=== PATIENT | male | born 1955 | race Caucasian/White ===

== ENCOUNTER 2018-05-08 18:01 | Observation (INO) ==
[2018-05-08] MEDS ORDERED: Nitroglycerin 0.4 MG TAB.SUBL SL ONE (18:05)
[2018-05-08] MEDS ORDERED: 0.9 % Sodium Chloride 500 ML IVC ONE (18:05)
--- NOTE | 2018-05-08 18:08 | Emergency Department Note ---
Disposition Clinical Impression: Chest pain Disposition: Admitted As Inpatient Condition: Fair Referrals: June Page, PHILIPP [Primary Care Provider] - Time of Disposition: 19:19 Chest Pain HPI - General Stated Complaint: CP Time Seen by Provider: 05/08/18 18:05 Source: patient Mode of arrival: wheelchair Limitations: no limitations Vital Signs Reviewed: Yes Nursing Notes Reviewed: Yes - History of Present Illness HPI Narrative: Patient presents to the ED if the chief complaint of chest pain. No previous history of coronary artery disease. States the pain started about 48 hours ago and is gradually worsening. It is intermittent. Has a heavy pressure in his left chest that radiates to his left arm. States that it hurts to move his arm but that is also worse with exertion. No fever or chills. No other chest pain. States that the pain does make him short of breath but no shortness of breath at baseline. No abdominal pain. No nausea, vomiting or diarrhea. States that he has not injured his arm. Does not smoke. - Related Data Home Medications Medication Instructions Recorded Confirmed Lisinopril-HCTZ 10-12.5 [Prinzide 1 tab PO QAM 06/10/15 03/11/18 10-12.5] Ibuprofen [Motrin] 800 mg PO Q8HR 01/24/16 03/11/18 traMADol [Ultram] 50 mg PO TID 01/24/16 03/11/18 Previous Rx's Medication Instructions Recorded Amoxicillin 875 mg PO BID #20 tablet 03/11/18 Allergies Allergy/AdvReac Type Severity Reaction Status Date / Time No Known Allergies Allergy Verified 03/11/18 09:52 Review of Systems: As reviewed in the HPI. All other systems reviewed are negative or normal. Chest Pain PMH - Past Medical History Medical history: Reports: hyperlipidemia, hypertension Surgical history: Reports: orthopedic, other (Back surgery) Psychiatric history: Reports: no psych history - Social History Smoking Status: Never smoker Alcohol use: Reports: none Drug use: Reports: none Physical Exam CONSTITUTIONAL: [Obese, ill appearing, alert and in no acute distress] EYES: [EOMI, clear conjunctiva, PERRLA] HENT: [Normocephalic, atraumatic, moist mucus membranes, normal oropharynx] NECK: [normal inspection, full ROM, trachea midline, no obvious swelling] PULMONARY: [normal lung sounds bilaterally, normal chest rise and fall, no respiratory distress or stridor, no wheezes, no rales, no rhonchi CARDIOVASCULAR: [regular rate, regular rhythm, normal heart sounds, no murmurs, distal extremities are warm and well perfused, the left chest wall is tender to palpation but is not reproducible of his pain] GASTROINSTESTINAL: [soft, non-tender, non-rigid, non-distended, no guarding, no rebound, normal bowel sounds] GENITOURINARY/RECTAL: [deferred] NEUROLOGIC: [Alert, oriented x3, normal speech, moves all extremities] EXTREMITIES: [Normal inspection, full ROM, no tenderness, no pedal edema, normal capillary refill] MUSCULOSKELETAL: [no gross deformities, atraumatic] SKIN: [No cyanosis, no diaphoresis, normal color, warm, no rash] PSYCHIATRIC: [normal mood and affect] Course - Reevaluation(s) Reevaluation #1: Patient's heart score is 4. Initial workup looks okay. Admitted to the hospit alist service. Vital Signs Temperature 99.5 F 05/08/18 18:07 Pulse Rate 84 05/08/18 18:07 Respiratory Rate 23 05/08/18 18:07 Blood Pressure 163/85 05/08/18 18:07 O2 Sat by Pulse Oximetry 98 05/08/18 18:07 Temperature 99.5 F 05/08/18 18:07 Pulse Rate 82 05/08/18 19:07 Respiratory Rate 16 05/08/18 19:07 Blood Pressure 152/72 05/08/18 19:07 O2 Sat by Pulse Oximetry 100 05/08/18 19:07 Oxygen Delivery Oxygen Delivery Room Air Chest Pain - Medical Records Medical records reviewed: Yes I reviewed the patient's medical records. - Lab Data Lab results reviewed: Yes I reviewed the patient's lab results. Result diagrams: 05/08/18 18:20 05/08/18 18:20 Lab Results 05/08/18 05/08/18 Range/Units 18:20 18:20 WBC 8.1 (4.3-11.1) K/mcL RBC 4.93 (4.19-5.50) M/mcL Hgb 16.4 (12.9-16.9) g/dL Hct 47.4 (37.5-50.1) % MCV 96.1 (83.0-100.0) fL MCH 33.3 (28.0-33.3) pg MCHC 34.6 (31.6-35.5) g/dL RDW 11.8 (11.5-14.5) % Plt Count 175 (140-400) K/mcL MPV 9.8 (9.4-12.4) fL Immature Gran % 0.2 (0-4) % Seg Neutrophils % 83.6 % Lymphocytes % 11.0 % Monocytes % 4.4 % Eosinophils % 0.4 % Basophils % 0.4 % Neutrophils # 6.8 (1.6-8.9) K/mcL Lymphocytes # 0.9 (0.6-4.6) K/mcL Monocytes # 0.4 (0.0-1.3) K/mcL Eosinophils # 0.0 (0.0-0.6) K/mcL Basophils # 0.0 (0.0-0.2) K/mcL Sodium 137 (136-145) mEq/L Potassium 3.9 (3.5-5.1) mEq/L Chloride 101 (98-107) mEq/L Carbon Dioxide 27 (23-29) mEq/L BUN 16 (8-23) mg/dL Creatinine 0.88 (0.70-1.30) mg/dL Est GFR ( Amer) > 60 (> 60) Est GFR (Non-Af Amer) > 60 (> 60) BUN/Creatinine Ratio 18 (6-26) Glucose 115 H (70-105) mg/dL Calculated Osmolality 286 (280-300) Calcium 9.2 (8.6-10.3) mg/dL Troponin I < 0.03 (< 0.04) ng/mL - Radiology Data Radiology results reviewed: Yes I reviewed the patient's radiology results. - EKG Data EKG attestation: Yes I reviewed and interpreted this EKG. EKG results narrative: Sinus rhythm, rate 84, left axis deviation, no acute ischemic change Heart Score - Score History: Moderately Suspicious EKG: Normal Age: Greater than 65 Risk Factors: 1-2 risk factors Troponin: Less than normal limit HEART Score Total: 4 Attestation Statement - Attestation Attestation: Patient was seen with resident physician. I reviewed the history, physical, assessment and plan, and agree with the findings. I also personally evaluated this patient and had [id number] time with this patient. 63-year-old male presents emergency Department with worsening chest pain for last 48 hours. Patient states pain started sometime yesterday was intermittent. However today became constant. Sharp's midsternal and left side of the chest. Radiates to the arm. It is worse with movement of the arm and little bit of palpation of the left breast. Does not reproduce the pain exactly. Patient does not have a cardiac history that he is aware of. He continues with pain at the time of initial evaluation. Review systems as above remainder negative. Physical exam vital signs stable ENT unremarkable. Heart regular rhythm and rate. Lungs clear. Abdomen soft obese and nontender. Extremities no significant findings. Neurologically intact with skin no rashes. Psych normal. ED course EKG shows no acute ischemic changes. We will do a complete cardiac workup and admit the patient for further evaluation treatment. With the patient's age and obesity and other risk factors we cannot exclude coronary issues and relatively brief ER visit. Initial workup in the emergency department did not reveal any acute abnormalities. The hospitalist service was notified as to the need for admission. They agreed to accept the patient. Agree with resident physician assessment and plan.
[2018-05-08 18:34] LABS: Basophils % 0.4 %; Eosinophils % 0.4 %; Hematocrit 47.4 % (37.5-50.1); Hemoglobin 16.4 g/dL (12.9-16.9); Immature Granulocytes % 0.2 % (0-4); Lymphocytes # 0.9 K/mcL (0.6-4.6); Mean Corpuscular HGB Conc 34.6 g/dL (31.6-35.5); Mean Corpuscular Hemoglobin 33.3 pg (28.0-33.3); Mean Corpuscular Volume 96.1 fL (83.0-100.0); Mean Platelet Volume 9.8 fL (9.4-12.4); Monocytes # 0.4 K/mcL (0.0-1.3); Monocytes % 4.4 %; Neutrophils # 6.8 K/mcL (1.6-8.9); Platelet Count 175 K/mcL (140-400); Red Blood Count 4.93 M/mcL (4.19-5.50); Red Cell Distribution Width 11.8 % (11.5-14.5); Segmented Neutrophils % 83.6 %
[2018-05-08 18:59] LABS: BUN/Creatinine Ratio 18 (6-26); Blood Urea Nitrogen 16 mg/dL (8-23); Calcium 9.2 mg/dL (8.6-10.3); Carbon Dioxide 27 mEq/L (23-29); Chloride 101 mEq/L (98-107); Glucose 115 mg/dL (70-105); Osmolality,Calculated 286 (280-300); Potassium 3.9 mEq/L (3.5-5.1); Sodium 137 mEq/L (136-145); eGFR For Non-African Americans > 60 (> 60)
[2018-05-08 19:00] LABS: Troponin I < 0.03 ng/mL (< 0.04)
[2018-05-08] MEDS ORDERED: Naloxone 0.4 MG/ML INJ IVP PRN (20:31)
--- NOTE | 2018-05-08 20:37 | Internal Med History&Physical ---
Date of Encounter: 05/08/18 Time of Encounter: 21:50 Internal Medicine - H&P: HPI Chief complaint: Chest pain Admitted From: Emergency Dept Plans for Post Hospital Care: Home History of present illness: Mr. Alas is a 63 year old male Patient presented to the emergency room with chest pain. He says the pain started about 48 hours prior to his arrival, intermittent in nature and feels like chest pressure radiating to his left arm. He states that it hurt to move his arms, and the pain worsened when he would exert himself. He denies shortness of breath, fever and chills. Emergency room patient's vital signs were stable, CBC and BMP within normal limits. Patient's troponins are undetectable. Patient's chest x-ray showed no acute abnormalities. Patient's EKG showed normal sinus rhythm with no acute ischemic changes. He was given a dose of nitroglycerin, and had total resolution of his pain. He has no previous history of cardiac disease, and was admitted to the hospital for further monitoring. Upon my evaluation patient states that his elbow still hurts a little. He has mild nausea, but denies vomiting,shortness of breath, diarrhea, constipation and abdominal pain. His chest pain has improved and is nearly gone. He describes his pain as a dull ache with radiation into right and left arms. Feels a heaviness in his chest. Patient is morbidly obese, and requires CPAP at night. Past Med Surg Social Fam HX - Past Medical History Medical history: hyperlipidemia, hypertension Additional medical history: Sleep apnea, Cpap Psychiatric history: no psych history - Past Surgical History Surgical History: orthopedic, other (Back surgery) Additional surgical history: back sx. left knee scope - Social History Smoking Status: Never smoker Smokeless Tobacco Status: No Alcohol use: none Drug use: none - Family History Mother Living Status: Hx Family Cancer: Yes (PANCREATIC) Sister Hx Family Cardiac Disorders: Yes (2 NM) Father Hx Family Cardiac Disorders: Yes (NM) Son Hx Family Cardiac Disorders: Yes (NM) Internal Medicine - H&P: Meds Lisinopril-HCTZ 10-12.5 [Prinzide 10-12.5] 1 tab PO QAM 06/10/15 [History] Ibuprofen [Motrin] 800 mg PO Q8HR 01/24/16 [History] traMADol [Ultram] 50 mg PO TID 01/24/16 [History] Allergy/AdvReac Type Severity Reaction Status Date / Time No Known Allergies Allergy Verified 03/11/18 09:52 All Systems PM: A 10-system review of systems was performed and is negative for pertinent fin dings except as documented above in the HPI. - Constitutional Vitals: Temp Pulse Resp BP Pulse Ox 99.5 F 82 22 150/75 100 05/08/18 18:07 05/08/18 20:08 05/08/18 20:08 05/08/18 20:08 05/08/18 20:08 General appearance: Present: cooperative, A&O X 3, pleasant, no acute distress, obese, answers questions appropriately Exam: - - Head Head exam: Present: normal inspection - Eye Eye exam: Present: EOMI, normal appearance - Neck Neck exam general surgery: Absent: tenderness - Respiratory Respiratory exam: Present: CTAB. Absent: rales, rhonchi, wheezes - Cardiovascular Cardiovascular exam: Present: distant heart sounds, RRR. Absent: diastolic murmur, systolic murmur - GI/Abdominal GI/Abdominal exam: Present: normal bowel sounds, soft. Absent: tenderness - Extremities Exam Extremities exam: Present: warm, radial pulses palpable and symmetrical. Absent: calf tenderness, pedal edema, tenderness - Neurological Exam Neurological exam: Present: no focal deficits, strengths equal and symetr throughout. Absent: motor sensory deficit, facial droop, speech deficit - Skin Skin exam: Present: dry, normal color, warm Internal Med - H&P Results - Labs CBC & Chem 7: 05/08/18 18:20 05/08/18 18:20 Labs: Short CBC 05/08/18 Range/Units 18:20 WBC 8.1 (4.3-11.1) K/mcL Hgb 16.4 (12.9-16.9) g/dL Hct 47.4 (37.5-50.1) % Plt Count 175 (140-400) K/mcL Neutrophils # 6.8 (1.6-8.9) K/mcL BMP 05/08/18 18:20 Sodium 137 Potassium 3.9 Chloride 101 Carbon Dioxide 27 BUN 16 Creatinine 0.88 Glucose 115 H Calcium 9.2 Cardiac Enzymes 05/08/18 Range/Units 18:20 Troponin I < 0.03 (< 0.04) ng/mL - Impressions ITS Impressions Chest X-Ray 05/08/18 18:05 IMPRESSION: No acute cardiopulmonary disease. D/ / 05/08/2018 18:56:41 Chandler Anderson MD / [facility] Interpreting Provider: Chandler Anderson MD - Assessment and plan (1) Chest pain Current Visit: Yes Status: Acute Assessment and plan: Patient's chest pain has nearly resolved. Troponins undetectable and no EKG changes. No stress tests or echocardiograms in our system. No tenderness with palpation over chest. Continue to trend troponins Cardiac monitoring Echocardiogram in the morning. Qualifiers: Chest pain type: unspecified Qualified Code(s): R07.9 - Chest pain, unspecified (2) Obesity Current Visit: Yes Status: Acute Assessment and plan: Patient is very large, with BMI of 61. Has obstructive sleep apnea as well. Recommend weight loss Qualifiers: Obesity type: due to excess calories Serious obesity comorbidity presence: with serious comorbidity Body mass index: BMI 60.0-69.9 Qualified Code(s): E66.01 - Morbid (severe) obesity due to excess calories; Z68.44 - Body mass index (BMI) 60.0-69.9, adult (3) Obstructive sleep apnea Current Visit: Yes Status: Acute Assessment and plan: Continue CPAP at night RT consultation for management Recommend weight loss (4) DVT prophylaxis Current Visit: Yes Status: Acute Assessment and plan: Subcutaneous heparin Q8H - Time Spent With Patient Total time spent is greater than 50% in coordination of care (as documented) at patient's floor/unit and/or counseling patient: Greater than 35 minutes
[2018-05-08] MEDS ORDERED: Acetaminophen 325 MG TABLET PO PRN (22:00)
[2018-05-08] MEDS ORDERED: Ondansetron 4 MG/2 ML VIAL IVP PRN (22:57)
[2018-05-09] MEDS ORDERED: Ibuprofen 400 MG TABLET PO ONE (00:16)
[2018-05-09] MEDS ORDERED: Nitroglycerin 0.4 MG TAB.SUBL SL PRN (00:39)
--- NOTE | 2018-05-09 00:48 | Event Note ---
Date of Encounter: 05/09/18 Time of Encounter: 00:30 Patient developed fever, 102.1. Tylenol and Ibuprofen given. Will get respiratory panel, UA and blood cultures. Chest x-ray negative for infection. Mid-chest pain as well. Will get stat EKG and try nitroglycerin. Troponin drawn for trend. Patient on CPAP currently, resting. Continue to monitor.
[2018-05-09 00:58] LABS: Hematocrit 41.3 % (37.5-50.1); Hemoglobin 14.8 g/dL (12.9-16.9); Mean Corpuscular HGB Conc 35.8 g/dL (31.6-35.5); Mean Corpuscular Hemoglobin 34.3 pg (28.0-33.3); Mean Corpuscular Volume 95.6 fL (83.0-100.0); Mean Platelet Volume 10.2 fL (9.4-12.4); Platelet Count 169 K/mcL (140-400); Red Blood Count 4.32 M/mcL (4.19-5.50); Red Cell Distribution Width 11.7 % (11.5-14.5)
[2018-05-09 01:18] LABS: BUN/Creatinine Ratio 20 (6-26); Blood Urea Nitrogen 16 mg/dL (8-23); Calcium 8.6 mg/dL (8.6-10.3); Carbon Dioxide 24 mEq/L (23-29); Chloride 103 mEq/L (98-107); Glucose 126 mg/dL (70-105); Osmolality,Calculated 283 (280-300); Potassium 3.5 mEq/L (3.5-5.1); Sodium 135 mEq/L (136-145); eGFR For Non-African Americans > 60 (> 60)
[2018-05-09 02:16] LABS: Bilirubin,Urine Small (Negative); Blood,Urine Negative (Negative); Clarity,Urine Clear (Clear); Color,Urine Dark Yellow (Yellow); Glucose,Urine (UA) Normal (Normal); Ketones,Urine Trace mg/dL (Negative); Leukocyte Esterase,Urine Negative (Negative); Nitrite,Urine Positive (Negative); Protein,Urine Negative (Neg-Trace); Specific Gravity,Urine 1.019 (1.010-1.025); Urobilinogen,Urine Normal (Normal)
[2018-05-09 02:18] LABS: Bacteria,Urine None Seen per hpf (None-Few); Hyaline Casts,Urine None Seen per lpf (None-Few); RBC,Urine 0-3 per hpf (0-3); Squamous Epithelial Cell,Urine Moderate per lpf (None-Few); WBC,Urine 0-3 per hpf (0-3)
[2018-05-09 02:28] LABS: Adenovirus Not Detected (Not Detect); Bordetella Pertussis Not Detected (Not Detect); Chlamydophila pneumoniae Not Detected (Not Detect); Coronavirus 229E Not Detected (Not Detect); Coronavirus HKU1 Not Detected (Not Detect); Coronavirus NL63 Not Detected (Not Detect); Coronavirus OC43 Not Detected (Not Detect); Human Metapneumovirus Not Detected (Not Detect); Human Rhinovirus/Enterovirus DETECTED (Not Detect); Influenza A Subtype 2009 H1 Not Detected (Not Detect); Influenza A Untypeable Not Detected (Not Detect); Influenza B Not Detected (Not Detect); Mycoplasma pneumoniae Not Detected (Not Detect); Parainfluenza Virus 1 Not Detected (Not Detect); Parainfluenza Virus 2 Not Detected (Not Detect); Parainfluenza Virus 3 Not Detected (Not Detect); Parainfluenza Virus 4 Not Detected (Not Detect); Respiratory Syncytial Virus Not Detected (Not Detect)
[2018-05-09] MEDS: *HR* Heparin 5,000 UNIT/ML VIAL SQ SCH ×2 (05:07→14:29)
[2018-05-09] MEDS ORDERED: Perflutren Lipid Microsphere 1.3 ML in 0.9 % Sodium Chloride 8.7 ML IVP ONE (10:53)
[2018-05-09 11:30] VITALS: BP 154/74
[2018-05-09] MEDS ORDERED: cefTRIAXone 1,000 MG in Water for inj. (sterile) 20 ML 10 ML IVP SCH (14:00)
--- NOTE | 2018-05-09 14:29 | Discharge Summary ---
- NOTES TO OUTPATIENT PROVIDER Notes to Outpatient Provider: no pending studies Orders not resulted at time of discharge: Pending orders 05/09/18 00:59 Culture,Blood [BC] Stat 05/09/18 02:04 Culture,Urine [RM] Routine Date of Encounter: 05/09/18 Time of Encounter: 14:27 - Discharge Diagnosis (1) UTI (urinary tract infection) Priority: Primary Status: Acute Assessment and Plan: UA positive for nitrates reporting urinary frequency but no dysuria Rx for Bactrim at d/c f/u with PCP in 1-week Qualifiers: Urinary tract infection type: site unspecified Hematuria presence: without hematuria Qualified Code(s): N39.0 - Urinary tract infection, site not specified (2) Respiratory infection, upper Priority: Primary Status: Acute Assessment and Plan: rhino virus positive on RIP denies any cough, or dyspnea with exertion he was febrile on admission but this has resolved supportive tx instructions provided Qualifiers: URI type: unspecified viral URI Qualified Code(s): J06.9 - Acute upper respiratory infection, unspecified (3) Chest pain Priority: Primary Status: Resolved Assessment and Plan: LVEF 65-70% Normal LV size, thickness and function RV not well seen, grossly normal RV structure and function no significant valvular dysfunction no PHTN Troponins negative x3 05/09--He is chest pain free at the time of my assessment. He is able to exert himself and complete basic ADL's and ambulate in room without return of chest pain. He is requesting to discharge at this time. I discussed risks and benefits of d/c vs further workup with a stress test and he verbalized that he understood. He has been instructed to f/u with PCP in 1-week to set up outpatient stress. Qualifiers: Chest pain type: unspecified Qualified Code(s): R07.9 - Chest pain, unspecified (4) Obesity Priority: Secondary Status: Chronic Assessment and Plan: discussed weight loss and lifestyle changes Qualifiers: Obesity type: due to excess calories Serious obesity comorbidity presence: with serious comorbidity Body mass index: BMI 60.0-69.9 Qualified Code(s): E66.01 - Morbid (severe) obesity due to excess calories; Z68.44 - Body mass index (BMI) 60.0-69.9, adult (5) Obstructive sleep apnea Priority: Secondary Status: Chronic Hospital course: Mr. Alas is a 63 year old male who presented with chest pain which appears atypical and was noted to worsen with ROM and exertion. He never had any associated shortness of breath, dizziness, palpitations, or nausea. CP resolved with 1SL nitro and has not returned. EKG is without ST-T wave changes concerning for ischemia and his troponins were normal x3. He also had c/o cough and URI s/sx and was febrile. Respiratory infection panel positive for rhinovirus. Additionally, he was found to have a UTI. He was requesting to be discharged at the time of my assessment. I discussed risks and benefits of d/c without further inpatient evaluation and he verbalized understanding. He was then instructed to f/u with PCP in 1-week to set up outpatient stress. I have given him instructions for supportive care of rhinovirus treatment and sent him with an Rx for Bactrim x 5 days for UTI. Urine culture pending at time of d/c. Discharge discussed with: patient, nurse - Time Spent with Patient Total time spent providing and/or coordinating discharge services: Less than 30 minutes - Discharge Medications Prescriptions: Sulfamethoxazole/Trimeth DS [Bactrim DS] 1 each PO BID 5 Days #10 tablet Home Medications: Lisinopril-HCTZ 10-12.5 [Prinzide 10-12.5] 1 tab PO QAM 06/10/15 [History] Ibuprofen [Motrin] 800 mg PO BID PRN 01/24/16 [History] Sulfamethoxazole/Trimeth DS [Bactrim DS] 1 each PO BID 5 Days #10 tablet 05/09/18 [Rx] Tramadol HCl [Ultram] 50 mg PO DAILY PRN 05/09/18 [History] Allergies/Adverse Reactions: Allergy/AdvReac Type Severity Reaction Status Date / Time No Known Allergies Allergy Verified 03/11/18 09:52 Date of admission: 05/08/18 19:58 Primary care physician: June Page CNP Discharging clinician: Drew Herrera Anticipated date of discharge: 05/09/18 - Constitutional Vitals: Temp Pulse Resp BP Pulse Ox 98.3 F 64 18 154/74 99 05/09/18 11:27 05/09/18 11:27 05/09/18 11:27 05/09/18 11:27 05/09/18 11:27 General appearance: Present: cooperative, A&O X 3, morbidly obese, pleasant, no acute distress, answers questions appropriately Exam: see exam - Head Head exam: Present: atraumatic, normocephalic - Eye Eye exam: Present: PERRL, conjuntiva pink, sclera anicteric Pupils: Present: PERRL - Neck Neck exam general surgery: Present: supple, trachea midline. Absent: lymphadenopathy - Respiratory Respiratory exam: Present: decreased breath sounds, CTAB, prolonged expiratory phase. Absent: accessory muscle use, chest wall tenderness, rales, respiratory distress, rhonchi, wheezes, tachypnea - Cardiovascular Cardiovascular exam: Present: RRR, +S1, +S2. Absent: diastolic murmur, gallop, rubs, systolic murmur - GI/Abdominal GI/Abdominal exam: Present: normal bowel sounds, soft, no peritoneal signs. Absent: distended, tenderness - Extremities Exam Extremities exam: Present: warm, radial pulses palpable and symmetrical. Absent: calf tenderness, cyanotic, pedal edema - Neurological Exam Neurological exam: Present: CN II-XII intact, oriented X3, no focal deficits. Absent: pronater drift, facial droop, speech deficit - Skin Skin exam: Present: dry, intact - Patient Status Disposition: Home, Self-Care Condition: Good Functional capacity at discharge: independent ambulation Overall status at discharge: patient is back to baseline - Discharge Instructions Instructions: Chest Pain (DC), Urinary Tract Infection in Men (DC) Follow Up With: June Page CNP [Primary Care Provider] - 05/16/18 () Forms: ED Satisfaction Letter - Diet and Activity Activity: increase activity as tolerated, resume usual activities as tolerated Diet: diabetic diet, low fat, low cholesterol, low salt diet, other (low-frank)
--- NOTE | 2018-05-11 16:42 | Electrocardiograph Report ---
[address] [address] Test Date: 2018-05-08 Pat Name: Johann Alas Department: EXAM8 Room: 3B Gender: M Tele Marketing Executive: : 1955 Requested By: Lavon Garland Order Number: [id number] Reading MD: Neo Centeno Measurements Intervals [place] Rate: 84 P: 33 [place]: 158 QRS: 2 QRSD: 94 T: 24 QT: 360 QTc: 426 Interpretive Statements Sinus rhythm Electronically Signed On 05-11-2018 16:41:08 EST by Neo Centeno
--- NOTE | 2018-05-11 16:53 | Electrocardiograph Report ---
[address] [address] Test Date: 2018-05-09 Pat Name: Johann Alas Department: 113 Room: 3B Gender: M Food And Beverage Associate: : 1955 Requested By: Yash Gomez Order Number: [id number] Reading MD: Neo Centeno Measurements Intervals [place] Rate: 68 P: 73 [place]: 160 QRS: 13 QRSD: 93 T: 29 QT: 399 QTc: 417 Interpretive Statements SINUS RHYTHM Electronically Signed On 05-11-2018 16:51:37 EST by Neo Centeno
== END 2018-05-09 15:47 | disposition home or self-care (01) ==
LOC: EMEROOARM 18:01 → 3BNU 18:01
PROVIDERS: ADMIT Family Medicine; ATTEND Family Medicine